=== PATIENT | male | born 1950 | race Caucasian/White ===

== ENCOUNTER → 2016-09-09 14:03 | Outpatient (CLI) | payer BC ==
[2016-04-22 07:42] VITALS: BMI 27.8
[~2016-09-09 14:03] MED LIST: ATIVAN1 MG PO; BAYER CHEWABLE81 MG PO; COZAAR50 MG PO; HYDROXYZINE HCL10 MG PO; PLAVIX75 MG PO; SPIRIVA18 MCG INH; TAMIFLU75 MG
== END | disposition home or self-care (01) ==
LOC: D.US 14:03
DX: I70.213 Atherosclerosis of native arteries of extremities with intermittent claudication, bilateral legs (principal)

== ENCOUNTER → 2017-11-30 15:53 | Outpatient (CLI) | payer MEDICARE, OTHER ==
[2016-04-22 07:42] VITALS: BMI 27.8
== END | disposition home or self-care (01) ==
LOC: D.CT 15:53
DX: M25.562 Pain in left knee (principal)

== ENCOUNTER 2019-06-16 08:50 | Outpatient (CLI) | payer MEDICARE, OTHER ==
[~2019-06-16] VITALS: Ht 177.8 cm; Wt 90.5 kg
--- NOTE | ~2019-06-16 | HEMODYNAMI ---
PATIENT:GISELLE DEWITT MEDICAL RECORD: [id number] : 54 LOCATION:D.CAT ADMISSION DATE: 06/16/19 Generatedon:06/16/201912:05 Patient name: GISELLE DEWITT Patient #: [id number] : 1950 Date of study: 06/16/2019 Page: Of Hemodynamic Procedure Report Patient Data Patient Demographics First Name: GISELLE Gender: Male Last Name: ESDRAS : 1950 Middle Initial: T Age: 69 year(s) Patient #: [id number] Race: Unknown SSN: [id number] Additional ID: [id number] Contact details [address]: [address] [place] [address] State: [place] City: [place] Zip code: [address] Past Medical History Allergies Allergen Reaction Date Comments Reported Penicillins 09/03/2015 Other allergy 04/22/2016 Penicillin Other allergy 06/16/2019 PCN Admission Admission Data Admission Date: 06/16/2019 Admission Time: 8:50 Arrival Date: 06/16/2019 Arrival Time: 0:00 Admit Source: Other Insurance Payor: Medicare [facility] #: [id number] Height (in.): 61 BSA: 1.89 (m2) Height (cm.): 154.94 BMI: 37.6 (kg/m2) Weight (lbs.): 199 Weight (kg.): 90.26 Lab Results Lab Result Date: 06/16/2019 Lab Result Time: 0:00 Biochemistry Name Units Result Min Max BUN mg/dl 19 --(----)*- 7 18 Creatinine mg/dl 1 --(--*-)-- 0.6 1.3 eGFR ml/min 79.02617 *-(----)-- 90 120 NONAFRICAN CBC Name Units Result Min Max Hemoglobin g/dl 15.3 --(-*--)-- 13.5 17.5 Procedure Procedure Types Cath Procedure Diagnostic Procedure LHC LHC w/Coronaries FFR/IVUS FFR Initial Sedation Charges Moderate Sedation up to 45 minutes PCI Procedure Coronary Stent Coronary Stent Initial Coronary Atherectomy Atherectomy w/Stent Coronary Initial Hemochron ACT Test Procedure Description Procedure Date Procedure Date: 06/16/2019 Procedure Start Time: 11:26 Procedure End Time: 11:59 Procedure Staff Name Function Barron Willis MD Performing Physician Galina Whitaker RT Monitor Lia Zaragoza RN Nurse Sera Terry RT Scrub Indication Chest pain Procedure Data Cath Procedure Fluoroscopy Diagnostic fluoroscopy Total fluoroscopy Time: 9.6 time: 9.6 min min Diagnostic fluoroscopy Total fluoroscopy dose: dose: 1741 mGy 1741 mGy Contrast Material Contrast Material Type Amount (ml) Isovue 370 147 Entry Location Entry Primary Successful Side Size Upsize Upsize Entry Closure Ramon ccessful Closure Location (Fr) 1 (Fr) 2 (Fr) Remarks Device Remarks Radial Right 6 Fr Mechanical artery Short Compression Diagnostic catheters Device Type Used For End Catheter Placement DIAGNOSTIC [place] 110cm 5 Procedure Fr catheter ([id number]) Procedure Complications No complications Procedure Medications Medication Administration Route Dosage 0.9% NaCl I.V. 100 ml/hr Oxygen etCO2 Nasal cannula 2 l/min Lidocaine 2% added to field 20 Heparin Flush Bag added to field 2 bags (1000units/500ml NS) Radial Cocktail added to field 1 syringe (Verapamil 2mg/Nitro 400mcg/Heparin 1500units) Versed I.V. 2 mg Fentanyl I.V. 50 mcg Versed I.V. 2 mg Fentanyl I.V. 50 mcg Versed I.V. 1 mg Fentanyl I.V. 25 mcg Heparin Bolus I.V. 4000 units Integrilin (Bolus I.V. 7.9 ml 2mg/ml) Plavix P.O. 600 mg Integrilin (Bolus wasted 2.1 ml 2mg/ml) Nitroglycerin IC/IA I.C. 200 mcg Cardene I.C. 300 mcg Hemodynamics Rest BSA: 1.89 (m2) HGB: 15.3 (g/dl) O2 Consumption: Estimated: 215.03 (ml/min) O2 Co nsumption indexed: Estimated:113.77 (ml/min/m) Heart Rate: 63 (bpm) Snapshots Pre Cath Intra NCS Post Cath Vital Signs Time Heart Resp SPO2 etCO2 NIBP (mmHg) Rhythm Pain Sedation Rate (ipm) (%) (mmHg) Status Level (bpm) 10:24:32 61 14 96 35.3 131/85(112) NSR 0 (11) 10(A) , No pain 10:28:44 63 20 97 29.9 128/79(107) NSR 0 (11) 10(A) , No pain 10:32:54 60 11 97 31.5 125/80(105) NSR 0 (11) 10(A) , No pain 10:37:06 60 12 97 29.2 117/76(95) NSR 0 (11) 10(A) , No pain 10:41:14 59 11 98 26.8 120/74(96) SB 0 (11) 10(A) , No pain 10:45:24 59 10 97 17.6 116/73(97) SB 0 (11) 10(A) , No pain 10:49:30 60 11 97 15 118/80(97) NSR 0 (11) 10(A) , No pain 10:53:37 59 11 97 23.8 121/80(96) SB 0 (11) 10(A) , No pain 10:57:45 60 12 97 13 121/79(93) NSR 0 (11) 10(A) , No pain 11:01:53 60 11 96 24.5 124/84(100) NSR 0 (11) 10(A) , No pain 11:06:03 60 10 96 15.3 126/80(106) NSR 0 (11) 10(A) , No pain 11:10:13 60 12 97 10 125/82(101) NSR 0 (11) 10(A) , No pain 11:14:23 59 12 97 18.4 129/79(100) SB 0 (11) 10(A) , No pain 11:18:32 60 12 97 20.7 119/81(101) NSR 0 (11) 10(A) , No pain 11:22:40 60 11 97 10.7 129/76(100) NSR 0 (11) 10(A) , No pain 11:26:52 58 11 96 17.6 117/81(97) SB 0 (11) 10(A) , No pain 11:31:02 59 11 96 29.1 114/69(93) SB 0 (11) 10(A) , No pain 11:35:10 70 11 97 30.7 118/75(96) NSR 0 (11) 9(A) , No pain 11:39:20 68 14 98 31.4 118/73(94) NSR 0 (11) 9(A) , No pain 11:43:30 66 11 97 28.4 119/71(113) NSR 0 (11) 9(A) , No pain 11:47:39 75 14 98 0 94/52(70) NSR 0 (11) 9(A) , No pain 11:52:34 60 11 97 3.8 132/72(107) NSR 0 (11) 9(A) , No pain 11:56:48 59 11 96 11.5 129/77(119) SB 0 (11) 10(A) , No pain Medications Time Medication Route Dose Verified Delivered Reason Not es Effectiveness by by 10:23:48 0.9% NaCl I.V. 100 Barron Lia used for ml/hr Lazaro Zaragoza home office claims examiner 10:23:54 Oxygen etCO2 2 l/min Barron Lia used for Nasal Lazaro Zaragoza procedure cannula RN 10:23:59 Lidocaine 2% added 20ml Barron Barron for local to vial Lazaro Willis MD anesthetic field 10:24:03 Heparin Flush added 2 bags Barron Barron used for Bag to Lazaro Willis MD procedure (1000units/500ml field NS) 10:24:10 Radial Cocktail added 1 Barron Barron used for (Verapamil to syringe Lazaro Willis MD procedure 2mg/Nitro field 400mcg/Heparin 1500units) 11:21:40 Versed I.V. 2 mg Barron Lia for sedation Lazaro Zaragoza RN 11:21:54 Fentanyl I.V. 50 mcg Barron Lia for sedation Lazaro Zaragoza RN 11:26:03 Versed I.V. 2 mg Barron Lia for sedation Lazaro Zaragoza RN 11:26:09 Fentanyl I.V. 50 mcg Barron Lia for sedation Lazaro Zaragoza RN 11:31:26 Versed I.V. 1 mg Barron Lia for sedation Lazaro Zaragoza RN 11:31:30 Fentanyl I.V. 25 mcg Barron Lia for sedation Lazaro Zaragoza RN 11:32:19 Integrilin I.V. 7.9 ml Barron Terrya for (Bolus 2mg/ml) Lazaro Zaragoza antiplatelet RN therapy 11:32:58 Heparin Bolus I.V. 4000 Barron Terrya for theresa ified units Lazaro Zaragoza anticoagulation with Dr. NARCISO Willis 11:37:36 Plavix P.O. 600 mg Barron Fitzgerald for Lazaro Zaragoza antiplatelet RN therapy 11:38:11 Integrilin wasted 2.1 ml Barron Fitzgerald for (Bolus 2mg/ml) Lazaro Zaragoza antiplatelet RN therapy 11:47:43 Nitroglycerin I.C. 200 mcg Barron Mart for IC/IA Lazaro Willis MD vasodilation 11:50:04 Cardene I.C. 300 mcg Barron Mart for Lazaro Willis MD vasodilation Procedure Log Time Note 10:16:12 Admit Source: Other 10:16:14 Arrival Date: 06/16/2019 12:00:00 AM 10:16:43 Insurance Payor : Medicare 10:16:49 Patient Height : 61 inches 10:16:56 Patient Weight : 199 lbs 10:19:28 Procedure type changed to Cath procedure, Diagnostic procedure, LHC, LHC w/Coronaries, FFR/IVUS, FFR Initial, Sedation Charges, Moderate Sedation up to 45 minutes, PCI procedure, Coronary Stent, Coronary Stent Initial, Coronary Atherectomy, Atherectomy w/Stent Coronary Initial, Hemochron ACT Test 10:19:59 Lab Result : Hemoglobin 15.3 g/dl 10:19:59 Lab Result : eGFR NONAFRICAN 79.55205 ml/min 10:19:59 Lab Result : BUN 19 mg/dl 10:19:59 Lab Result : Creatinine 1 mg/dl 10:20:40 Indication : Chest pain 10:20:49 Procedure Status Elective Heart Cath (OP). 10:20:52 Lia Zaragoza RN sent for patient. Start room use. 10:20:59 Time tracking: Regular hours (M-F 7:00 - 5:00) 10:21:03 Plan of Care:Hemodynamics will remain stable., Cardiac rhythm will remain stable., Comfort level will be maintained., Respiratory function will remain adequate., Patient/ family verbilizes understanding of procedure., Procedure tolerated without complication., Recovers from procedure without complications.. 10:21:12 Patient received from Pre/Post Procedure Room to CCL 2 Alert and oriented. Tansferred to table in Supine position. 10:21:13 Warm blankets applied, and rodolfo hugger turned on for patient comfort. 10:21:14 Correct patient and procedure confirmed by team. 10:21:14 ECG and BP/O2 sat monitors applied to patient. 10:21:17 Vital chart was started 10:21:46 H&P Date Dictated: 06/07/2019 Within 30 days and on chart., H&P Addendum completed by physician on day of procedure. (MUST COMPLETE FOR ALL OUTPATIENTS). 10:21:48 Pre-procedure instructions explained to patient. 10:21:49 Family in waiting room. 10:21:51 Patient NPO since Midnight. 10:22:02 Patient allergic to Other allergyPCN 10:22:06 Is the patient allergic to Iodine/contrast media? No. 10:22:07 Was the patient premedicated? Yes 10:22:12 Is patient on blood thinner?No 10:22:28 Patient diabetic? No. 10:22:32 Snore? Yes 10:22:34 Sleep apnea? No 10:22:39 Patient pain scale 0/10 ?. 10:22:48 IV patent on arrival in left forearm with 0.9% NaCl at [facility] 10:22:53 Lab results completed and on chart. 10:23:11 Stress Test: yes; abnormal multi 10:23:16 Right Radial & Right Groin area was prepped with chlora-prep and draped in sterile fashion 10:23:26 Alarms reviewed by R. N. 10:23:26 Sharps counted by scrub and verified by R.N. 10:23:29 Baseline sample Acquired. 10:23:32 Full Disclosure recording started 10:23:48 0.9% NaCl 100 ml/hr I.V. was administered by Lia Zaragoza RN; used for procedure; Verbal order read back and verified. 10:23:54 Oxygen 2 l/min etCO2 Nasal cannula was administered by Lia Zaragoza RN; used for procedure; Verbal order read back and verified. 10:23:59 Lidocaine 2% 20ml vial added to field was administered by Barron Willis MD; for local anesthetic; Verbal order read back and verified. 10:24:03 Heparin Flush Bag (1000units/500ml NS) 2 bags added to field was administered by Barron Willis MD; used for procedure; Verbal order read back and verified. 10:24:10 Radial Cocktail (Verapamil 2mg/Nitro 400mcg/Heparin 1500units) 1 syringe added to field was administered by Barron Willis MD; used for procedure; Verbal order read back and verified. 10:31:48 Risk of Mortality: .1 10:31:51 Risk of blood transfusion: .1 10:31:54 Risk of ALEX: .2 11:00:04 Physician arrived 11:00:07 Right Radial & Right Groin site verified by team. 11:00:11 Fire Safety Assessment: A--An alcohol-based skin anteseptic being used preoperatively., C--Open oxygen or nitrous oxide is being used., D--An ESU, laser, or fiber-optic light is being used. 11:00:22 Physical assessment completed. ASA score P 3 - A patient with severe systemic disease as per Barron Willis MD. 11:00:28 2) 60-89 Mildly reduced kidney function, and other findings (as for stage 1) point to kidney disease. 11:00:33 Maximum allowable contrast dose (3.7 X eGFR X 0.75)219 ml. 11:00:38 Sedation plan: IV Moderate Sedation Medication:Versed, Fentanyl 11:20:04 --------ALL STOP TIME OUT------ 11:20:05 Final Timeout: patient, procedure, and site verified with staff and physician. All members of the team are in agreement. 11:21:40 Versed 2 mg I.V. was administered by Lia Zaragoza RN; for sedation; Verbal order read back and verified. 11:21:54 Fentanyl 50 mcg I.V. was administered by Lia Zaragoza RN; for sedation; Verbal order read back and verified. 11:26:03 Versed 2 mg I.V. was administered by Lia Zaragoza RN; for sedation; Verbal order read back and verified. 11:26:09 Fentanyl 50 mcg I.V. was administered by Lia Zaragoza RN; for sedation; Verbal order read back and verified. 11:26:35 Use device set Radial Dx or PCI 11:26:37 Procedure started. 11:26:54 Local anesthetic to right radial artery with Lidocaine 2% by Barron Willis MD.INITIAL ACCESS ONLY 11:27:09 A 6 Fr Short sheath was inserted into the Right Radial artery 11:27:13 J wire advanced. 11:27:16 ACIST Syringe (26489) opened to sterile field. 11:27:17 Medline Cath Pack ([id number]) opened to sterile field. 11:27:17 Bag Decanter (2002) opened to sterile field. 11:27:24 ACIST Hand Control (64472) opened to sterile field. 11:27:24 ACIST Manifold (11737) opened to sterile field. 11:27:25 Tegaderm 4 x 4 (1626W) opened to sterile field. 11:27:26 MBrace Wrist Support (696397449) opened to sterile field. 11:27:30 EMERALD Guide Wire (185-052) opened to sterile field. 11:28:07 SHEATH 6FR RAIN (2091404) opened to sterile field. 11:28:13 A DIAGNOSTIC [place] 110cm 5 Fr catheter (198740) was advanced over the wire and used for Procedure. 11:28:15 LV angiography performed. 11:28:30 EF : 60 % 11:28:33 Catheter removed. 11:28:57 LCA angiography performed. 11:29:24 RCA angiography performed. 11:29:26 Catheter removed. 11:31:26 Versed 1 mg I.V. was administered by Lia Zaragoza RN; for sedation; Verbal order read back and verified. 11:31:30 Fentanyl 25 mcg I.V. was administered by Lia Zaragoza RN; for sedation; Verbal order read back and verified. 11:31:47 Proceeding to intervention. 11:32:01 6 Fr xblad3.5 guide catheter was inserted over the wire 11:32:19 Integrilin (Bolus 2mg/ml) 7.9 ml I.V. was administered by Lia Zaragoza RN; for antiplatelet therapy; Verbal order read back and verified. 11:32:58 Heparin Bolus 4000 units I.V. was administered by Lia Zaragoza RN; for anticoagulation; verified with Dr. Willis Verbal order read back and verified. 11:34:46 LASER ELCA 0.9 Rx atherectomy catheter (568163) opened to sterile field. 11:34:47 CHOICE PT Extra Support 182cm wire ([id number]) opened to sterile field. 11:34:48 INFLATOR Merit BasixCompak (CC0443) opened to sterile field. 11:34:48 [place] Verrata Plus pressure wire (65271Q) opened to sterile field. 11:34:50 GUIDE 6FR XBLAD 3.5 catheter (81754294) opened to sterile field. 11:35:30 Pre PCI Site: [place] mLAD has 95% stenosis. 11:35:41 choice pt wire advanced. 11:35:43 Wire advanced across lesion. 11:37:31 Inflate balloon Inflation number: 1 A EUPHORA 2.5 x 30 Balloon ([id number]) was prepped and advanced across the Mid LAD 95, then inflated to 13 ARIS for 0:10 (min:sec) . 11:37:36 Plavix 600 mg P.O. was administered by Lia Zaragoza RN; for antiplatelet therapy; Verbal order read back and verified. 11:38:11 Integrilin (Bolus 2mg/ml) 2.1 ml wasted was administered by Lia Zaragoza RN; for antiplatelet therapy; Verbal order read back and verified. 11:38:21 Balloon removed over the wire. 11:39:43 Laser pass to mLAD with Fluence of 80 and Rate of 40. 11:45:47 Laser catheter removed. 11:46:29 Laser total pulses delivered: 3201 11:46:35 Laser total treatment time: 1 minutes 20 seconds 11:47:33 Place stent Inflation Number: 2 A MADDY RX 2.5 x 34 stent ([id number]) was prepped and advanced across the Mid LAD 95. The stent was deployed at 13 ARIS for 0:08 (min:sec) . 11:47:43 Nitroglycerin IC/IA 200 mcg I.C. was administered by Barron Willis MD; for vasodilation; Verbal order read back and verified. 11:48:45 Stent catheter was removed intact over wire. 11:50:01 Wire removed. 11:50:01 Guide catheter removed. 11:50:04 Cardene 300 mcg I.C. was administered by Barron Willis MD; for vasodilation; Verbal order read back and verified. 11:50:17 6 Fr Ar2 guide catheter was inserted over the wire 11:50:24 FFR/IFR wire advanced. 11:51:22 Zero performed for pressure channel P1 11:53:51 Baseline FFR 100. 11:54:03 mRCA lesion measured at 0.85 with IFR 11:57:09 Place stent Inflation Number: 1 A MADDY RX 3.0 x 18 stent ([id number]) was prepped and advanced across the Mid RCA 75. The stent was deployed at 17 ARIS for 0:18 (min:sec) . 11:57:22 Stent catheter was removed intact over wire. 11:57:22 Wire removed. 11:57:23 Guide catheter removed. 11:57:55 Sheath removed intact; hemostasis achieved with Mechanical Compression to the Right Radial artery. 11:57:57 Procedure ended.(Physican Out) 11:58:11 ZEPHYR REGULAR TR BAND (827734) opened to sterile field. 11:58:20 Fluoroscopy time 09.60 minutes. 11:58:26 Fluoroscopy dose: 1741 mGy 11:58:26 Flurop Dose total: 1741 11:58:33 Dose Area Product 49296 mGy/cm. 11:58:57 Contrast amount:Isovue 370 147ml. 11:59:05 Maximum allowable dose exceeded? No. 11:59:06 Sharps counted by scrub and verified by R.N. 11:59:08 [place] band inflated with 10cc of air. 11:59:09 Insertion/operative site no bleeding no hematoma. 11:59:15 Post right radial artery:stable 11:59:16 Post Procedure Pulses reassessed and unchanged 11:59:25 Post-procedure physical assessment completed. ASA score P 2 - A patient with mild systemic disease as per Barron Willis MD. 11:59:27 Post procedure rhythm: unchanged. 11:59:28 Post procedure instruction explained to patient.Patient verbalizes understanding. 11:59:29 Procedure and supply charges have been captured, reviewed, submitted and are correct. 11:59:33 Procedure Complication : No complications 11:59:37 Vital chart was stopped 11:59:38 [facility] Findings: MVD- PCI performed (see procedure note) 11:59:40 Operative report dictated upon procedure completion. 11:59:42 See physician's report for complete and final results. 11:59:43 Report given to Pre/Post Procedure Room. 11:59:47 Patient transfered to Pre/Post Procedure Room with Stretcher. 11:59:49 Procedure ended. 11:59:49 Full Disclosure recording stopped 12:00:04 ACC-PCI Only Patient was given prescriptions, or instructed by Barron Willis MD to start/continue the following medications upon discharge: Plavix 12:00:05 End room use (Document Last) 12:01:35 ACT drawn and resulted at 304 seconds. (normal therapeutic range 180-240 seconds). Intervention Summary Intervention Notes Time ActionType Lesion and Equipment Used Action# Pressure Duration Attributes 11:37:31 Inflate Mid LAD EUPHORA 2.5 x 1 13 00:10 balloon 30 Balloon ([id number]) 11:47:33 Place stent Mid LAD MADDY RX 2.5 x 2 13 00:08 34 stent ([id number]) 11:57:09 Place stent Mid RCA MADDY RX 3.0 x 1 17 00:18 18 stent ([id number]) Device Usage Item Name Manufacture Quantity Catalog Number Hospital Part Current Minimal Lot# / Charge Number Stock Stock Serial# Code ACIST Syringe Acist 1 22122 465387 516480 836134 20 (92829) Medical Systems Inc Medline Cath Medline 1 [id number] 093244 36325 067798 5 Pack ([id number]) Bag Decanter Microtek 1 2001S 596255 98930 412072 5 (2002S) Medical Inc. ACIST Hand Acist 1 47504 728454 463612 370138 5 Control Medical (14933) Systems Inc ACIST Manifold Acist 1 20213 393934 557341 451669 5 (98297) Medical Systems Inc Tegaderm 4 x 4 3M 1 1626W 417271 183911 096478 5 (1626W) MBrace Wrist Advanced 1 140-0250-00 579586 31408 691623 5 Support Vascular (251022625) Dynamics EMERALD Guide Cardinal 1 502-455 278194 199339 969051 5 Wire (502455) Health SHEATH 6FR Cardinal 1 3555039 000989 2330391 209803 5 RAIN (4881133) Health DIAGNOSTIC Terumo 1 40-4089 373404 499167 269968 5 [place] 110cm 5 Fr catheter (616319) LASER ELCA 0.9 Catherine 1 110-004 308748 896842 491369 5 Rx atherectomy Healthcare catheter (942150) (393680) CHOICE PT [place] 1 [id number] 181066 975873 821464 5 Extra Support Scientific 182cm wire (2907778S9) INFLATOR Merit Merit 1 [id number] 762529 556569 548226 15 [facility] (MG3203) [place] 1 78412T 836530 359204893 780225 5 Verrata Plus pressure wire (40204F) GUIDE 6FR Cardinal 1 [id number] 474741 971238 047495 10 XBLAD 3.5 Health catheter (61340982) EUPHORA 2.5 x Medtronic 1 [id number] 280210 489338 308390 5 [id number] 30 Balloon ([id number]) MADDY RX 2.5 x Medtronic 1 [id number] 589537 3385436 938863 5 [id number] 34 stent ([id number]) MADDY RX 3.0 x Medtronic 1 [id number] 960798 6528745 980354 5 [id number] 18 stent ([id number]) ZEPHYR REGULAR Cardinal 1 210032 580508 0055137 603545 5 [facility] [employer] (114399) Signature Audit [place] Stage Time Signature Unsigned Intra-Procedure 06/16/2019 Lia Zaragoza 12:03:54 PM RN Intra-Procedure 06/16/2019 Galina Whitaker 12:04:40 PM RT(R) Intra-Procedure 06/16/2019 Barron Willis 12:05:05 PM Signatures Performing Physician : Signature : Barron Willis MD Date : Time : Monitor : Galina Whitaker Signature : RT Date : Time : Nurse : Lia Zaragoza RN Signature : Date : Time : [address] [place] [address]
[2019-06-16 09:27] VITALS: BP 124/79; Ht 177.8 cm; Wt 90.5 kg
[2019-06-16 09:48] LABS: BASOPHILS 0.8 % (0-2); EOSINOPHILS 2.7 % (0-7); HEMATOCRIT 46.4 % (42.0-54.0); HEMOGLOBIN 15.3 g/dL (13.5-17.5); IMMATURE GRANULOCYTES 0.5 % (0-5); LYMPHOCYTES 25.4 % (15-50); MCH 32.1 pg (26.0-34.0); MCV 97.3 fL (80.0-100.0); MEAN PLATELET VOLUME 9.6 fL (7.4-10.4); MONOCYTES 12.6 % (2-11); PLATELET COUNT 187 10x3/uL (130-400); RBC 4.77 10x6/uL (4.20-6.10); RDW 13.6 % (11.5-14.5); WBC 7.4 10x3/uL (4.8-10.8)
[2019-06-16 10:10] LABS: ALT (SGPT) 21 U/L (10-68); CALC OSMOLALITY 281 mosm/kg (275-300); CALCIUM 8.5 mg/dL (8.5-10.1); CARBON DIOXIDE 27.8 mmol/L (21.0-32.0); CHLORIDE - SERUM 107 mmol/L (98-107); CHOLESTEROL, TOTAL 169 mg/dL (0-200); GLUCOSE 112 mg/dL (74-106); HDL CHOLESTEROL 42 mg/dL (32-96); LDL CHOLESTEROL 86 mg/dL (0-100); POTASSIUM - SERUM 4.9 mmol/L (3.5-5.1); SODIUM 140 mmol/L (136-145); TRIGLYCERIDE 207 mg/dL (30-200); UREA NITROGEN 19 mg/dL (7-18); eGFR NON AFRICAN AMERICAN 79 mL/min (90-120)
--- NOTE | 2019-06-16 12:15 | NUR ---
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 MONITORS ESTAB, AT BS. SEE TANNERY GUMMER, VSS. ALARMS ON.
[2019-06-16] MEDS ORDERED: PLAVIX75 MG PO (12:23)
--- NOTE | 2019-06-16 12:30 | NUR ---
PT RESTING QUIETLY, VSS. R WRIST SITE C/D/I.
--- NOTE | 2019-06-16 13:00 | NUR ---
R WRIST SITE C/D/I, NO S/S BLEEDING OR HEMATOMA. AT BS. PT DENIES PAIN OR NEEDS. VSS.
--- NOTE | 2019-06-16 13:15 | NUR ---
PT VOIDED 350ML CLEAR, YELLOW URINE. R WRIST SITE C/D/I, NO S/S BLEEDING OR HEMATOMA.
--- NOTE | 2019-06-16 13:45 | NUR ---
R WRIST SITE C/D/I, NO S/S BLEEDING OR SWELLING. VSS. PT DENIES NEEDS.
--- NOTE | 2019-06-16 14:15 | NUR ---
R WRIST SITE C/D/I, NO S/S BLEEDING OR HEMATOMA. VSS. PT DENIES NEEDS.
--- NOTE | 2019-06-16 15:00 | NUR ---
2CC AIR REMOVED FROM Z BAND. NO S/S BLEEDING OR HEMATOMA. PT INSTRUCTED ON S/S TO REPORT. C/L IN REACH.
--- NOTE | 2019-06-16 15:15 | NUR ---
TOTAL OF 5CC AIR REMOVED FROM Z BAND, NO S/S BLEEDING OR HEMATOMA.
--- NOTE | 2019-06-16 15:30 | NUR ---
ALL AIR REMOVED FROM Z BAND, NO S/S BLEEDING OR HEMATOMA. PIV D/C'D INTACT, DSG APPLIED.
--- NOTE | 2019-06-16 15:50 | NUR ---
ALL D/C INSTRUCTIONS INCLUDING MEDS AND FOLLOW UP APPT REVIEWED WITH PT AND HIS . PT ALLOWED TO GET UP AND GET DRESSED WITH ASSISTING.
--- NOTE | 2019-06-16 15:58 | NUR ---
Z BAND OFF AND DSG APPLIED. PT TO BR INDEPENDENTLY, THEN D/C'D VIA WC TO PRIVATE VEHICLE. PT HAS ALL PAPERWORK AND BELONGINGS.
--- NOTE | 2019-06-19 11:54 | OP ---
PATIENT NAME: GISELLE DEWITT MEDICAL RECORD: [id number] :54 LOCATION:D.CAT ADMISSION DATE: SURGEON: ISAIAH LARSON MD DATE OF OPERATION: 06/16/2019 PROCEDURES: 1. Laser atherectomy, PTCA stent LAD. 2. PTCA stent RCA. 3. IFR RCA. 4. Left heart catheterization. 5. Selective coronary angiography. 6. Left ventriculogram. INDICATION: Angina and coronary artery disease. PROCEDURE IN DETAIL: After informed consent was obtained and after detailed explanation of risks, benefits as well as alternative therapies, the patient elected to proceed with angiogram and angioplasty. The right radial area was prepped and draped in normal sterile fashion. Right radial artery was cannulated via modified Seldinger technique with placement of 6-[place]uxembourgish sheath. All catheters exchanged through this sheath. FINDINGS: The left ventriculogram was performed in standard 30-degree MCNEIL view, reveals good cardiac wall motion, ejection fraction estimated 60%. SELECTIVE CORONARY ANGIOGRAPHY: 1. Left main is with no significant angiographic disease. 2. Left anterior descending has previously placed stent, 95% in-stent restenosis. 3. Left circumflex has moderate irregularities, but no flow-limiting stenosis. 4. The right coronary has previously placed stents, these are widely patent; however, the area between the stents appears to be 70% stenosed and IFR was abnormal. PTCA STENT OF THE RCA: The stent used was a 3.0 x 18 mm [place]. Result was 0% residual stenosis. LASER ATHERECTOMY, PTCA stent of the LAD: Multiple passes were made with an 80/40 catheters. Stenting was undertaken with a 2.5 x 34 [place]. Result was 0% residual stenosis. OVERALL IMPRESSION: Successful PTCA stent of the LAD and RCA going from 80% to 95% initial stenosis to 0% residual. TRANSINT:[id number] Voice Confirmation ID: [id number] DOCUMENT ID: [id number] ISAIAH LARSON MD at 1154 CC: [id number] DICTATION DATE: 06/16/19 1212 BATT MACHINE OPERATOR: 06/16/19 2228 DEP CLI 06/16/19 [place] [address]
== END 2019-06-16 15:59 | disposition home or self-care (01) ==
LOC: D.CATH 08:50
PROVIDERS: ATTEND Internal Medicine Interventional Cardiology
DX: I25.119 Atherosclerotic heart disease of native coronary artery with unspecified angina pectoris (principal); Z95.0 Presence of cardiac pacemaker; E78.5 Hyperlipidemia, unspecified; I10 Essential (primary) hypertension; J44.9 Chronic obstructive pulmonary disease, unspecified; K21.9 Gastro-esophageal reflux disease without esophagitis; R94.30 Abnormal result of cardiovascular function study, unspecified; Z72.0 Tobacco use; R06.09 Other forms of dyspnea
CPT/HCPCS: 93458; 93571; C9602; C9600